=== PATIENT | male | born 1965 | race Caucasian/White ===

== ENCOUNTER → 2017-12-26 09:54 | Outpatient (CLI) | payer OTHER, SELFPAY ==
--- NOTE | 2017-12-26 10:25 | RAD_ITS ---
STUDY: X-RAY - LEFT FOOT CLINICAL: Male, 52 years old. Pain across the toes that started in the fifth digit TECHNIQUE: 3 view(s) of the foot. COMPARISON: None. FINDINGS: Normal talus, calcaneus, and tarsal bones. Normal visualized subtalar, talonavicular, calcaneocuboid, tarsal and tarsometatarsal articulations. Normal metatarsi. Normal metatarsophalangeal joint of the great toe. Normal tibial and fibular sesamoid bones. Normal interphalangeal joint of the great toe. Normal phalanges of the great toe. Normal second through fifth metatarsophalangeal joints. Normal interphalangeal joints and phalanges of the lesser toes. The soft tissue structures are unremarkable. RAD/Foot min 3 Views IMPRESSION: Normal x-ray examination of the foot. Electronically Signed: Sandeep Marquis MD at 17:29 EST , Service support ,
== END ==
PROVIDERS: Family Provider Family Medicine; PCP Family Medicine; Referring Provider Family Medicine; Visit Provider Family Medicine
DX: M79.672 Pain in left foot (principal)
CPT/HCPCS: 73630